=== PATIENT | female | born 1980 ===

== ENCOUNTER 2017-09-13 12:16 | Emergency (ER) | payer OTHER, SELFPAY ==
[2017-09-13 12:36] VITALS: BP 171/101; PULSE 93; RESP 20; TEMP 36.8; O2SAT 100
--- NOTE | 2017-09-13 12:45 | ED.CHESTPAIN ---
HPI - Chest Pain <JULISSA Jacobsen - Last Filed: 09/13/17 22:26> General Chief Complaint: Chest Pain Stated Complaint: chest pain,hard to catch breath Time Seen by Provider: 09/13/17 12:27 Source: patient Mode of arrival: ambulatory Limitations: no limitations History of Present Illness HPI narrative: Patient presents with chief complaint of epigastric and chest pain. States this started last night was 10/10. She took her ranitidine, and set up in a decreased enough for her to sleep. She woke up in pain at 3:00 a.m. she was able to sleep again after, and now states her pain comes and goes in waves. States her pain is mid epigastric and radiates to her back. States this started after eating cheeseburger and potato chips last night. She denies any dizziness, lightheadedness, nausea, vomiting, fever. She denies any palpitations swelling or constipation. She states her pain is 8/10 when it is at its worst. She states right now it is 0 to 1/10. She is not taking anything for the pain other than the ranitidine. She is concerned as she is worried about her heart and her family has a history of gallbladder problems. States slight dry cough. States hard to take a deep breath. Related Data Home Medications Medication Instructions Recorded Confirmed esomeprazole magnesium [Nexium #0 05/16/16 Packet] fexofenadine #0 05/16/16 Previous Rx's Medication Instructions Recorded albuterol sulfate [Ventolin HFA] 0 INH Q4H #8 gm 05/16/16 azithromycin [Zithromax] 0 PO QDAY #1 packet 05/16/16 prednisone 0 PO QDAY #7 tab 05/16/16 esomeprazole magnesium 20 mg PO DAILY #14 tab 09/13/17 Allergies Allergy/AdvReac Type Severity Reaction Status Date / Time aspirin [ASPIRIN] Allergy Unknown Unverified 07/22/17 12:41 ibuprofen [IBUPROFEN] Allergy Unknown Unverified 07/22/17 12:41 Review of Systems <JULISSA Jacobsen - Last Filed: 09/13/17 22:26> Review of Systems GENERAL: See HPI HEENT: Denies sinus pain, ear pain, sore throat, difficulty swallowing, dizziness. RESPIRATORY: Denies dyspnea, cough, wheezing, hemoptysis, sputum. CARDIOVASCULAR: See HPI GASTROINTESTINAL: See HPI : Denies dysuria, frequency, incontinence, hematuria, urinary retention. MUSCULOSKELETAL: denies weakness, joint pain, or bony pain SKIN: Denies rash, skin lesions, or other NEUROLOGIC: Denies weakness, headache, numbness, change in speech, confusion, seizures, incoordination. PSYCHIATRIC: No concerning psychosocial issues. 12 point review of systems is negative except for those stated above Exam <JULISSA Jacobsen - Last Filed: 09/13/17 22:26> Narrative Exam Narrative: GENERAL: This is a well-nourished, well-developed patient, in no acute distress. HEAD: Atraumatic. Normocephalic. No temporal or scalp tenderness. EYES: Pupils equal round and reactive. Extraocular motions intact. No scleral icterus. No injection or drainage. ENT: Nose without bleeding, purulent drainage or septal hematoma. Throat without erythema, tonsillar hypertrophy or exudate. Uvula midline. Airway patent. NECK: Trachea midline. No JVD or lymphadenopathy. Supple, nontender, no meningeal signs. CARDIOVASCULAR: Regular rate and rhythm without murmurs, gallops, or rubs. RESPIRATORY: Clear to auscultation. Breath sounds equal bilaterally. No wheezes, rales, or rhonchi. No cough in noted during exam. GASTROINTESTINAL: Abdomen soft, non-tender, nondistended. No hepato-splenomegaly, or palpable masses. No guarding. Positive [place] sign to palpation. No pain at McBurney's point. EXTREMITIES: No clubbing, cyanosis, or edema. No joint tenderness, effusion, or edema noted. BACK: Nontender without deformity or crepitance. No flank tenderness. NEURO: AOx3. SKIN: No rash or erythema. Initial Vital Signs Initial Vital Signs: Vital Signs Temperature 98.3 F 09/13/17 12:36 Pulse Rate 93 H 09/13/17 12:36 Respiratory Rate 20 09/13/17 12:36 Blood Pressure 171/101 H 09/13/17 12:36 Pulse Oximetry 100 09/13/17 12:36 <Gabino Garrison MD - Last Filed: 10/15/17 06:47> Initial Vital Signs Initial Vital Signs: Vital Signs Temperature 98.3 F 09/13/17 12:36 Pulse Rate 93 H 09/13/17 12:36 Respiratory Rate 20 09/13/17 12:36 Blood Pressure 171/101 H 09/13/17 12:36 Pulse Oximetry 100 09/13/17 12:36 Course <JULISSA Jacobsen - Last Filed: 09/13/17 22:26> Orders Ordered: Discontinued Medications Al Hydrox/Mg Hydrox/Simethicone 20 ml/ Lidocaine HCl 15 ml 0 ml PO NOW ONE Stop: 09/13/17 13:38 Last Admin: 09/13/17 13:45 Dose: 35 ml Reevaluation(s) Reevaluation #1: Discussed with patient resulting lab work. Still waiting on chest x-ray an official ultrasound read. However centrifugal chiller technician states no abnormal findings on ultrasound. Patient's pain is 0 to 1/10 at this point time. States comfort. Time: 13:25 Reevaluation #2: Discussed negative chest x-ray result. Discussed trial of GI cocktail for pain. Time: 13:38 Reevaluation #3: Patient states full relief with GI cocktail. Second set of cardiac enzymes drawn. Drawn 2 hr after 1st and several hours after onset of pain. Time: 14:30 Vital Signs - 8 hr 09/13/17 14:36 09/13/17 15:06 09/13/17 15:42 Pulse Rate 81 75 71 Respiratory Rate 18 12 16 Blood Pressure [Right Arm] 129/89 H 140/96 H 127/86 H Pulse Oximetry 100 100 100 <Gabino Garrison MD - Last Filed: 10/15/17 06:47> Orders Ordered: Discontinued Medications Al Hydrox/Mg Hydrox/Simethicone 20 ml/ Lidocaine HCl 15 ml 0 ml PO NOW ONE Stop: 09/13/17 13:38 Last Admin: 09/13/17 13:45 Dose: 35 ml Vital Signs - 8 hr 09/13/17 14:36 09/13/17 15:06 09/13/17 15:42 Pulse Rate 81 75 71 Respiratory Rate 18 12 16 Blood Pressure [Right Arm] 129/89 H 140/96 H 127/86 H Pulse Oximetry 100 100 100 MDM - Chest Pain <JULISSA Jacobsen - Last Filed: 09/13/17 22:26> Lab Data Attestation: I reviewed the patient's lab results. Result diagrams: 09/13/17 12:25 09/13/17 12:25 Lab Results 09/13/17 09/13/17 09/13/17 Range/Units 12:25 12:25 14:30 WBC 7.7 (4.5-11.0) X10^3/uL RBC 4.70 (4.0-5.2) X10^6/uL Hgb 13.9 (12.0-16.0) g/dL Hct 41.5 (36-46) % MCV 88.2 (80-100) fL MCH 29.7 (26-34) PG MCHC 33.6 (30-36) % RDW 12.7 (11.6-14.8) % Plt Count 298 (150-400) X10^3/uL Neut % (Auto) 58.8 (50-75) % Lymph % (Auto) 32.4 (25-40) % [place] % (Auto) 7.4 (3-14) % Eos % (Auto) 1.1 L (2-4) % Baso % (Auto) 0.3 (0-2) % Neut # (Auto) 4500 (0816-5872) /uL Sodium 142 (137-145) mmol/L Potassium 3.7 (3.4-5.1) mmol/L Chloride 104 (98-107) mmol/L Carbon Dioxide 26 (22-32) mmol/L BUN 13 (7-17) mg/dL Creatinine 0.70 (0.52-1.04) mg/dL Estimated GFR > 60.0 (>60) mL/min BUN/Creatinine Ratio 18.6 (6-22) Glucose 121 H (70-100) mg/dL Calcium 9.7 (8.4-10.2) mg/dL Total Bilirubin 1.0 (0.2-1.3) mg/dL AST 26 (14-36) IU/L ALT 35 (9-52) IU/L Alkaline Phosphatase 56 (38-126) U/L Total Creatine Kinase 54 (30-135) U/L Troponin I < 0.012 < 0.012 (0.01-0.034) ng/mL Total Protein 8.4 H (6.3-8.2) g/dL Albumin 4.8 (3.5-5.0) g/dL Globulin 3.6 (1.7-4.1) g/dL Albumin/Globulin Ratio 1.3 (1.0-2.8) Lipase 81 (23-300) U/L Imaging Data Chest x-ray: Radiologist's impression: [address] [address] XRay Report Signed Patient: Quinn Olson MR#: [id number] : 1980 Acct:[id number] Age/Sex: 36 / F Date of Service: 09/13/17 Loc: ED Accession Number: [id number] Procedure: XR chest 1V Ordering Provider: Khushboo Fry PROCEDURE: XR CHEST 1V INDICATIONS: chest pain TECHNIQUE: One view of the chest was acquired. COMPARISON: None. FINDINGS: Surgical changes and devices: None. Lungs and pleura: No pleural effusions or pneumothorax. Lungs are clear. Mediastinum: Mediastinal contours appear normal. Heart size is normal. Bones and chest wall: No suspicious bony lesions. Overlying soft tissues appear unremarkable. IMPRESSION: No acute cardiopulmonary findings. Dictated by: Tati Silva M.D. on 09/13/2017 at 13:29 Approved by: Tati Silva M.D. on 09/13/2017 at 13:30 US - abdomen: Radiologist's impression: [address] [address] Ultrasound Report Signed Patient: Quinn Olson MR#: [id number] : 1980 Acct:[id number] Age/Sex: 36 / F Date of Service: 09/13/17 Loc: ED Accession Number: [id number] Procedure: US abdomen complete Ordering Provider: Khushboo Fry PROCEDURE: US ABDOMEN COMPLETE INDICATIONS: RUQ, epigastric pain + murphys sign TECHNIQUE: Real-time scanning was performed of the abdominal and retroperitoneal organs, with image documentation. COMPARISON: None. FINDINGS: Liver: Liver is normal in size and homogeneous in echotexture. Gallbladder: The gallbladder wall measures 2 mm in diameter. No pericholecystic fluid, sludge, or stones. Biliary ducts: Intrahepatic bile ducts are non-dilated. Extrahepatic bile duct caliber measures 3 mm. Normal is 6-7 mm or less in diameter, or 10 mm or less post-cholecystectomy. Pancreas: Visualized portions of the pancreas are sonographically normal. Spleen: Spleen is normal in size and homogeneous in echotexture. Kidneys: Kidneys are normal in size and echotexture. Right kidney measures 10.6 cm long; left kidney measures 11.7 cm long. No hydronephrosis or nephrolithiasis. No solid masses. Aorta: Visualized aorta is normal in caliber at less than 3 cm. Iliacs: Proximal common iliac arteries are normal in caliber at less than 2.5 cm. IVC: Intrahepatic inferior vena cava is patent. Miscellaneous: No free abdominal fluid. IMPRESSION: No cholelithiasis or findings to suggest choledocholithiasis or acute cholecystitis. Dictated by: Tati Silva M.D. on 09/13/2017 at 13:36 Approved by: Tati Silva M.D. on 09/13/2017 at 13:37 ECG Data Attestation: I personally reviewed and interpreted this ECG as follows: Interpretation: Sinus rhythm. Heart rate 80.IA 171. No ST changes. MDM Narrative Medical decision making narrative: Patient presents with epigastric pain. She has a history of GERD. She had a EKG within normal limits, 2 sets of negative cardiac enzymes and normal lab work. Given her pain on palpation of right upper quadrant, we did an ultrasound which was negative for any acute gallbladder related etiology. Given her complete improvement of pain with menstruation of GI cocktail, I believe she is having a flare of her GERD. I discussed with her dietary changes including decreased acid, spice etc. I prescribed Prilosec for her that she requested a prescription. We discussed follow up with her primary care. We discussed come back to the emergency department for any acute concerns including chest pain or shortness of breath. Patient had no questions or concerns upon discharge. <Gabino Garrison MD - Last Filed: 10/15/17 06:47> Lab Data Lab Results 09/13/17 09/13/17 09/13/17 Range/Units 12:25 12:25 14:30 WBC 7.7 (4.5-11.0) X10^3/uL RBC 4.70 (4.0-5.2) X10^6/uL Hgb 13.9 (12.0-16.0) g/dL Hct 41.5 (36-46) % MCV 88.2 (80-100) fL MCH 29.7 (26-34) PG MCHC 33.6 (30-36) % RDW 12.7 (11.6-14.8) % Plt Count 298 (150-400) X10^3/uL Neut % (Auto) 58.8 (50-75) % Lymph % (Auto) 32.4 (25-40) % [place] % (Auto) 7.4 (3-14) % Eos % (Auto) 1.1 L (2-4) % Baso % (Auto) 0.3 (0-2) % Neut # (Auto) 4500 (5108-0454) /uL Sodium 142 (137-145) mmol/L Potassium 3.7 (3.4-5.1) mmol/L Chloride 104 (98-107) mmol/L Carbon Dioxide 26 (22-32) mmol/L BUN 13 (7-17) mg/dL Creatinine 0.70 (0.52-1.04) mg/dL Estimated GFR > 60.0 (>60) mL/min BUN/Creatinine Ratio 18.6 (6-22) Glucose 121 H (70-100) mg/dL Calcium 9.7 (8.4-10.2) mg/dL Total Bilirubin 1.0 (0.2-1.3) mg/dL AST 26 (14-36) IU/L ALT 35 (9-52) IU/L Alkaline Phosphatase 56 (38-126) U/L Total Creatine Kinase 54 (30-135) U/L Troponin I < 0.012 < 0.012 (0.01-0.034) ng/mL Total Protein 8.4 H (6.3-8.2) g/dL Albumin 4.8 (3.5-5.0) g/dL Globulin 3.6 (1.7-4.1) g/dL Albumin/Globulin Ratio 1.3 (1.0-2.8) Lipase 81 (23-300) U/L Discharge Plan Departure Patient Disposition: Home, Self-Care Clinical Impression: Chest pain due to GERD Discharge Date/Time: 09/13/17 15:49 Interventions: ED Discharge Assessment Last Done: 09/13/17 15:48 Instructions: DI for Gastroesophageal Reflux Disease (GERD), DI for Atypical Chest Pain Activity Restrictions/Additional Instructions: You came to the emergency department today for concerns of chest pain. You had a normal EKG, normal chest x-ray and normal blood work. However you did respond well to the GI cocktail that we gave you for concern about acid reflux. I am giving you a prescription for esomeprazole, which have taken before. Please monitor your diet for triggers. Feel free to take as needed heartburn medication if you need to. Feel free to come back to the emergency department if you have any concerns about her heart or acute changes. Prescriptions: New esomeprazole magnesium 20 mg tablet,delayed release (DR/EC) 20 mg PO DAILY Qty: 14 RF: 0 No Action fexofenadine 60 mg Tablet Qty: 0 RF: 0 esomeprazole magnesium [Nexium Packet] 2.[address] For Susp In Packet Qty: 0 RF: 0 azithromycin [Zithromax] 250 MG tablet PO QDAY Qty: 1 RF: 0 prednisone 20 MG tablet PO QDAY Qty: 7 RF: 0 albuterol sulfate [Ventolin HFA] 90 MCG/PUFF HFA aerosol inhaler INH Q4H Qty: 8 RF: 0 Referrals: Ken Mcleod, [facility] [Primary Care Provider] - <Gabino Garrison MD - Last Filed: 10/15/17 06:47> Cosign ED Attending Cosignature Attestation: The PA/TRANSITIONAL CARE NURSE functioned independently for the care of this pt, I was available, but not asked to participate in care. I am unable to determine appropriateness of management without personally examining the pt.
[2017-09-13 12:52] LABS: Add Manual Diff / Slide Review NO; Basophils Percent Auto 0.3 % (0-2); Eosinophils Percent Auto 1.1 % (2-4); Hematocrit 41.5 % (36-46); Hemoglobin 13.9 g/dL (12.0-16.0); Lymphocytes Percent Auto 32.4 % (25-40); Mean Corpuscular HGB Conc 33.6 % (30-36); Mean Corpuscular Hemoglobin 29.7 PG (26-34); Mean Corpuscular Volume 88.2 fL (80-100); Monocytes Percent Auto 7.4 % (3-14); Neutrophils Absolute Auto 4500 /uL (3000-5900); Neutrophils Percent Auto 58.8 % (50-75); Platelet Count 298 X10^3/uL (150-400); Red Cell Distribution Width 12.7 % (11.6-14.8); White Blood Cell Count 7.7 X10^3/uL (4.5-11.0)
[2017-09-13 12:59] LABS: Alanine Aminotransferase 35 IU/L (9-52); Albumin 4.8 g/dL (3.5-5.0); Albumin Globulin Ratio 1.3 (1.0-2.8); Alkaline Phosphatase 56 U/L (38-126); Aspartate Aminotransferase 26 IU/L (14-36); BUN Creatinine Ratio 18.6 (6-22); Blood Urea Nitrogen 13 mg/dL (7-17); Calcium 9.7 mg/dL (8.4-10.2); Carbon Dioxide 26 mmol/L (22-32); Chloride 104 mmol/L (98-107); Creatine Kinase 54 U/L (30-135); Estimated Glomerular Filt Rate > 60.0 mL/min (>60); Globulin 3.6 g/dL (1.7-4.1); Glucose 121 mg/dL (70-100); HEMOLYSIS 17 (0-50); Lipase 81 U/L (23-300); Potassium 3.7 mmol/L (3.4-5.1); Sodium 142 mmol/L (137-145); Total Protein 8.4 g/dL (6.3-8.2)
[2017-09-13 13:07] VITALS: BP 143/93; PULSE 84; RESP 15; O2SAT 100
[2017-09-13 13:11] LABS: Troponin I < 0.012 ng/mL (0.01-0.034)
--- NOTE | 2017-09-13 13:21 | ED_ITS ---
HPI - Chest Pain <JULISSA Jacobsen - Last Filed: 09/13/17 22:26> General Chief Complaint: Chest Pain Stated Complaint: chest pain,hard to catch breath Time Seen by Provider: 09/13/17 12:27 Source: patient Mode of arrival: ambulatory Limitations: no limitations History of Present Illness HPI narrative: Patient presents with chief complaint of epigastric and chest pain. States this started last night was 10/10. She took her ranitidine, and set up in a decreased enough for her to sleep. She woke up in pain at 3:00 a.m. she was able to sleep again after, and now states her pain comes and goes in waves. States her pain is mid epigastric and radiates to her back. States this started after eating cheeseburger and potato chips last night. She denies any dizziness, lightheadedness, nausea, vomiting, fever. She denies any palpitations swelling or constipation. She states her pain is 8/10 when it is at its worst. She states right now it is 0 to 1/10. She is not taking anything for the pain other than the ranitidine. She is concerned as she is worried about her heart and her family has a history of gallbladder problems. States slight dry cough. States hard to take a deep breath. Related Data Home Medications Medication Instructions Recorded Confirmed esomeprazole magnesium [Nexium #0 05/16/16 Packet] fexofenadine #0 05/16/16 Previous Rx's Medication Instructions Recorded albuterol sulfate [Ventolin HFA] 0 INH Q4H #8 gm 05/16/16 azithromycin [Zithromax] 0 PO QDAY #1 packet 05/16/16 prednisone 0 PO QDAY #7 tab 05/16/16 esomeprazole magnesium 20 mg PO DAILY #14 tab 09/13/17 Allergies Allergy/AdvReac Type Severity Reaction Status Date / Time aspirin [ASPIRIN] Allergy Unknown Unverified 07/22/17 12:41 ibuprofen [IBUPROFEN] Allergy Unknown Unverified 07/22/17 12:41 Review of Systems <JULISSA Jacobsen - Last Filed: 09/13/17 22:26> Review of Systems GENERAL: See HPI HEENT: Denies sinus pain, ear pain, sore throat, difficulty swallowing, dizziness. RESPIRATORY: Denies dyspnea, cough, wheezing, hemoptysis, sputum. CARDIOVASCULAR: See HPI GASTROINTESTINAL: See HPI : Denies dysuria, frequency, incontinence, hematuria, urinary retention. MUSCULOSKELETAL: denies weakness, joint pain, or bony pain SKIN: Denies rash, skin lesions, or other NEUROLOGIC: Denies weakness, headache, numbness, change in speech, confusion, seizures, incoordination. PSYCHIATRIC: No concerning psychosocial issues. 12 point review of systems is negative except for those stated above Exam <JULISSA Jacobsen - Last Filed: 09/13/17 22:26> Narrative Exam Narrative: GENERAL: This is a well-nourished, well-developed patient, in no acute distress. HEAD: Atraumatic. Normocephalic. No temporal or scalp tenderness. EYES: Pupils equal round and reactive. Extraocular motions intact. No scleral icterus. No injection or drainage. ENT: Nose without bleeding, purulent drainage or septal hematoma. Throat without erythema, tonsillar hypertrophy or exudate. Uvula midline. Airway patent. NECK: Trachea midline. No JVD or lymphadenopathy. Supple, nontender, no meningeal signs. CARDIOVASCULAR: Regular rate and rhythm without murmurs, gallops, or rubs. RESPIRATORY: Clear to auscultation. Breath sounds equal bilaterally. No wheezes , rales, or rhonchi. No cough in noted during exam. GASTROINTESTINAL: Abdomen soft, non-tender, nondistended. No hepato-splenomegaly , or palpable masses. No guarding. Positive Machuca sign to palpation. No pain at McBurney's point. EXTREMITIES: No clubbing, cyanosis, or edema. No joint tenderness, effusion, or edema noted. BACK: Nontender without deformity or crepitance. No flank tenderness. NEURO: AOx3. SKIN: No rash or erythema. Initial Vital Signs Initial Vital Signs: Vital Signs Temperature 98.3 F 09/13/17 12:36 Pulse Rate 93 H 09/13/17 12:36 Respiratory Rate 20 09/13/17 12:36 Blood Pressure 171/101 H 09/13/17 12:36 Pulse Oximetry 100 09/13/17 12:36 <Gabino Garrison MD - Last Filed: 10/15/17 06:47> Initial Vital Signs Initial Vital Signs: Vital Signs Temperature 98.3 F 09/13/17 12:36 Pulse Rate 93 H 09/13/17 12:36 Respiratory Rate 20 09/13/17 12:36 Blood Pressure 171/101 H 09/13/17 12:36 Pulse Oximetry 100 09/13/17 12:36 Course <JULISSA Jacobsen - Last Filed: 09/13/17 22:26> Orders Ordered: Discontinued Medications Al Hydrox/Mg Hydrox/Simethicone 20 ml/ Lidocaine HCl 15 ml 0 ml PO NOW ONE Stop: 09/13/17 13:38 Last Admin: 09/13/17 13:45 Dose: 35 ml Reevaluation(s) Reevaluation #1: Discussed with patient resulting lab work. Still waiting on chest x-ray an official ultrasound read. However ceramics technician states no abnormal findings on ultrasound. Patient's pain is 0 to 1/10 at this point time. States comfort. Time: 13:25 Reevaluation #2: Discussed negative chest x-ray result. Discussed trial of GI cocktail for pain. Time: 13:38 Reevaluation #3: Patient states full relief with GI cocktail. Second set of cardiac enzymes drawn. Drawn 2 hr after 1st and several hours after onset of pain. Time: 14:30 Vital Signs - 8 hr 09/13/17 14:36 09/13/17 15:06 09/13/17 15:42 Pulse Rate 81 75 71 Respiratory Rate 18 12 16 Blood Pressure [Right Arm] 129/89 H 140/96 H 127/86 H Pulse Oximetry 100 100 100 <Gabino Garrison MD - Last Filed: 10/15/17 06:47> Orders Ordered: Discontinued Medications Al Hydrox/Mg Hydrox/Simethicone 20 ml/ Lidocaine HCl 15 ml 0 ml PO NOW ONE Stop: 09/13/17 13:38 Last Admin: 09/13/17 13:45 Dose: 35 ml Vital Signs - 8 hr 09/13/17 14:36 09/13/17 15:06 09/13/17 15:42 Pulse Rate 81 75 71 Respiratory Rate 18 12 16 Blood Pressure [Right Arm] 129/89 H 140/96 H 127/86 H Pulse Oximetry 100 100 100 MDM - Chest Pain <JULISSA Jacobsen - Last Filed: 09/13/17 22:26> Lab Data Attestation: I reviewed the patient's lab results. Result diagrams: 09/13/17 12:25 09/13/17 12:25 Lab Results 09/13/17 09/13/17 09/13/17 Range/Units 12:25 12:25 14:30 WBC 7.7 (4.5-11.0) X10^3/uL RBC 4.70 (4.0-5.2) X10^6/uL Hgb 13.9 (12.0-16.0) g/dL Hct 41.5 (36-46) % MCV 88.2 (80-100) fL MCH 29.7 (26-34) PG MCHC 33.6 (30-36) % RDW 12.7 (11.6-14.8) % Plt Count 298 (150-400) X10^3/uL Neut % (Auto) 58.8 (50-75) % Lymph % (Auto) 32.4 (25-40) % [place]own[place] % (Auto) 7.4 (3-14) % Eos % (Auto) 1.1 L (2-4) % Baso % (Auto) 0.3 (0-2) % Neut # (Auto) 4500 (7795-4705) /uL Sodium 142 (137-145) mmol/L Potassium 3.7 (3.4-5.1) mmol/L Chloride 104 (98-107) mmol/L Carbon Dioxide 26 (22-32) mmol/L BUN 13 (7-17) mg/dL Creatinine 0.70 (0.52-1.04) mg/dL Estimated GFR > 60.0 (>60) mL/min BUN/Creatinine Ratio 18.6 (6-22) Glucose 121 H (70-100) mg/dL Calcium 9.7 (8.4-10.2) mg/dL Total Bilirubin 1.0 (0.2-1.3) mg/dL AST 26 (14-36) IU/L ALT 35 (9-52) IU/L Alkaline Phosphatase 56 (38-126) U/L Total Creatine Kinase 54 (30-135) U/L Troponin I < 0.012 < 0.012 (0.01-0.034) ng/mL Total Protein 8.4 H (6.3-8.2) g/dL Albumin 4.8 (3.5-5.0) g/dL Globulin 3.6 (1.7-4.1) g/dL Albumin/Globulin Ratio 1.3 (1.0-2.8) Lipase 81 (23-300) U/L Imaging Data Chest x-ray: Radiologist's impression: [address] [address] XRay Report Signed Patient: Quinn Olson MR#: [id number] : 1980 Acct:[id number] Age/Sex: 36 / F Date of Service: 09/13/17 Loc: ED Accession Number: [id number] Procedure: XR chest 1V Ordering Provider: Khushboo Fry PROCEDURE: XR CHEST 1V INDICATIONS: chest pain TECHNIQUE: One view of the chest was acquired. COMPARISON: None. FINDINGS: Surgical changes and devices: None. Lungs and pleura: No pleural effusions or pneumothorax. Lungs are clear. Mediastinum: Mediastinal contours appear normal. Heart size is normal. Bones and chest wall: No suspicious bony lesions. Overlying soft tissues appear unremarkable. IMPRESSION: No acute cardiopulmonary findings. Dictated by: Tati Silva M.D. on 09/13/2017 at 13:29 Approved by: Tati Silva M.D. on 09/13/2017 at 13:30 US - abdomen: Radiologist's impression: [address] [address] Ultrasound Report Signed Patient: Quinn Olson MR#: [id number] : 1980 Acct:[id number] Age/Sex: 36 / F Date of Service: 09/13/17 Loc: ED Accession Number: [id number] Procedure: US abdomen complete Ordering Provider: Khushboo Fry PROCEDURE: US ABDOMEN COMPLETE INDICATIONS: RUQ, epigastric pain + murphys sign TECHNIQUE: Real-time scanning was performed of the abdominal and retroperitoneal organs, with image documentation. COMPARISON: None. FINDINGS: Liver: Liver is normal in size and homogeneous in echotexture. Gallbladder: The gallbladder wall measures 2 mm in diameter. No pericholecystic fluid, sludge, or stones. Biliary ducts: Intrahepatic bile ducts are non-dilated. Extrahepatic bile duct caliber measures 3 mm. Normal is 6-7 mm or less in diameter, or 10 mm or less post-cholecystectomy. Pancreas: Visualized portions of the pancreas are sonographically normal. Spleen: Spleen is normal in size and homogeneous in echotexture. Kidneys: Kidneys are normal in size and echotexture. Right kidney measures 10.6 cm long; left kidney measures 11.7 cm long. No hydronephrosis or nephrolithiasis. No solid masses. Aorta: Visualized aorta is normal in caliber at less than 3 cm. Iliacs: Proximal common iliac arteries are normal in caliber at less than 2.5 cm. IVC: Intrahepatic inferior vena cava is patent. Miscellaneous: No free abdominal fluid. IMPRESSION: No cholelithiasis or findings to suggest choledocholithiasis or acute cholecystitis. Dictated by: Tati Silva M.D. on 09/13/2017 at 13:36 Approved by: Tati Silva M.D. on 09/13/2017 at 13:37 ECG Data Attestation: I personally reviewed and interpreted this ECG as follows: Interpretation: Sinus rhythm. Heart rate 80.LA 171. No ST changes. MDM Narrative Medical decision making narrative: Patient presents with epigastric pain. She has a history of GERD. She had a EKG within normal limits, 2 sets of negative cardiac enzymes and normal lab work. Given her pain on palpation of right upper quadrant, we did an ultrasound which was negative for any acute gallbladder related etiology. Given her complete improvement of pain with menstruation of GI cocktail, I believe she is having a flare of her GERD. I discussed with her dietary changes including decreased acid, spice etc. I prescribed Prilosec for her that she requested a prescription. We discussed follow up with her primary care. We discussed come back to the emergency department for any acute concerns including chest pain or shortness of breath. Patient had no questions or concerns upon discharge. <Gabino Garrison MD - Last Filed: 10/15/17 06:47> Lab Data Lab Results 09/13/17 09/13/17 09/13/17 Range/Units 12:25 12:25 14:30 WBC 7.7 (4.5-11.0) X10^3/uL RBC 4.70 (4.0-5.2) X10^6/uL Hgb 13.9 (12.0-16.0) g/dL Hct 41.5 (36-46) % MCV 88.2 (80-100) fL MCH 29.7 (26-34) PG MCHC 33.6 (30-36) % RDW 12.7 (11.6-14.8) % Plt Count 298 (150-400) X10^3/uL Neut % (Auto) 58.8 (50-75) % Lymph % (Auto) 32.4 (25-40) % [place] % (Auto) 7.4 (3-14) % Eos % (Auto) 1.1 L (2-4) % Baso % (Auto) 0.3 (0-2) % Neut # (Auto) 4500 (8173-5331) /uL Sodium 142 (137-145) mmol/L Potassium 3.7 (3.4-5.1) mmol/L Chloride 104 (98-107) mmol/L Carbon Dioxide 26 (22-32) mmol/L BUN 13 (7-17) mg/dL Creatinine 0.70 (0.52-1.04) mg/dL Estimated GFR > 60.0 (>60) mL/min BUN/Creatinine Ratio 18.6 (6-22) Glucose 121 H (70-100) mg/dL Calcium 9.7 (8.4-10.2) mg/dL Total Bilirubin 1.0 (0.2-1.3) mg/dL AST 26 (14-36) IU/L ALT 35 (9-52) IU/L Alkaline Phosphatase 56 (38-126) U/L Total Creatine Kinase 54 (30-135) U/L Troponin I < 0.012 < 0.012 (0.01-0.034) ng/mL Total Protein 8.4 H (6.3-8.2) g/dL Albumin 4.8 (3.5-5.0) g/dL Globulin 3.6 (1.7-4.1) g/dL Albumin/Globulin Ratio 1.3 (1.0-2.8) Lipase 81 (23-300) U/L Discharge Plan Departure Patient Disposition: Home, Self-Care Clinical Impression: Chest pain due to GERD Discharge Date/Time: 09/13/17 15:49 Interventions: ED Discharge Assessment Last Done: 09/13/17 15:48 Instructions: DI for Gastroesophageal Reflux Disease (GERD), DI for Atypical Chest Pain Activity Restrictions/Additional Instructions: You came to the emergency department today for concerns of chest pain. You had a normal EKG, normal chest x-ray and normal blood work. However you did respond well to the GI cocktail that we gave you for concern about acid reflux. I am giving you a prescription for esomeprazole, which have taken before. Please monitor your diet for triggers. Feel free to take as needed heartburn medication if you need to. Feel free to come back to the emergency department if you have any concerns about her heart or acute changes. Prescriptions: New esomeprazole magnesium 20 mg tablet,delayed release (DR/EC) 20 mg PO DAILY Qty: 14 RF: 0 No Action fexofenadine 60 mg Tablet Qty: 0 RF: 0 esomeprazole magnesium [Nexium Packet] 2.[address] For Susp In Packet Qty: 0 RF: 0 azithromycin [Zithromax] 250 MG tablet PO QDAY Qty: 1 RF: 0 prednisone 20 MG tablet PO QDAY Qty: 7 RF: 0 albuterol sulfate [Ventolin HFA] 90 MCG/PUFF HFA aerosol inhaler INH Q4H Qty: 8 RF: 0 Referrals: Ken Mcleod, CECI [Primary Care Provider] - <Gabino Garrison MD - Last Filed: 10/15/17 06:47> Cosign ED Attending Cosignature Attestation: The PA/AUTOMOTIVE SALES MANAGER functioned independently for the care of this pt, I was available, but not asked to participate in care. I am unable to determine appropriateness of management without personally examining the pt.
[2017-09-13] MEDS: MAG HYDROX/ALUMINUM/SIMETH SUS 20 ML, LIDOCAINE VISCOUS 2% 15 ML PO (13:45)
[2017-09-13 14:00] VITALS: BP 129/89; PULSE 82; RESP 16; O2SAT 99
[2017-09-13 14:36] VITALS: BP 129/89; PULSE 81; RESP 18; O2SAT 100
[2017-09-13 15:03] LABS: Troponin I < 0.012 ng/mL (0.01-0.034)
[2017-09-13 15:06] VITALS: BP 140/96; PULSE 75; RESP 12; O2SAT 100
[2017-09-13 15:42] VITALS: BP 127/86; PULSE 71; RESP 16; O2SAT 100
== END 2017-09-13 15:49 | disposition home or self-care (01) ==
PROVIDERS: Emergency Provider Nurse Practitioner Family; PCP Registered Nurse Diabetes Educator
DX: K21.9 Gastro-esophageal reflux disease without esophagitis (principal); R07.9 Chest pain, unspecified
CPT/HCPCS: 36415; 36591; 71045; 76700; 80053; 82550; 82553; 83690; 84484; 85025; 93005; 93041; 99283; 99285

== ENCOUNTER 2018-02-03 11:38 | Day surgery (SDC) | payer OTHER, SELFPAY ==
--- NOTE | 2018-02-03 | PATH_ITS ---
[facility] Accession Number: [id number] . 01 Material submitted: . PART A: GASTRIC BIOPSIES PART B: ESOPHAGEAL BIOPSIES . 01 Clinical history: . A: GASTRIC BIOPSIES FOR H.PYLORI . 02 Diagnosis: A. Stomach, Biopsies: Gastric body mucosa with no diagnostic abnormality. No evidence of Helicobacter organisms on H/E stain. Negative for intestinal metaplasia, dysplasia or malignancy. . B. Esophagus, Biopsies: Squamous and columnar mucosa with mild reactive features of reflux esophagitis. 0-1 eosinophils per 40X high-power field. Negative for specialized intestinal metaplasia, dysplasia or malignancy. [facility]/02/04/2018 . 02 Electronically signed: . Dwight Irvin MD, PhD, Pathologist NPI- [id number] . 01 Gross description: . Received two formalin-filled containers, both labeled with the patient's name: . A. In a container labeled gastric, the specimen consists of a 0.2 cm portion of tissue, entirely submitted in cassette A. B. In a container labeled esophageal, the specimen consists of four less than 0.1 cm to 0.3 cm portions of tissue, entirely submitted in cassette B. ([id number]) /FRR . 02 Pathologist provided ICD-10: R10.13, K21.0 . 02 CPT . 462904, 729782 Performed at: 01 [facility] [address] [id number] MD Bruno Oliva MD Phone: [phone] Performed at: 02 [facility] [address] [place], [place] [id number] MD Atif Del Angel MD Phone: [phone]
[2018-02-03 11:52] VITALS: BP 144/92; PULSE 82; RESP 16; TEMP 37.3; O2SAT 100; BMI 25.7
[2018-02-03] MEDS: SODIUM CHLORIDE 0.9% 1,000 ML 42 ML IV (12:07)
--- NOTE | 2018-02-03 13:47 | PM.HP.1 ---
History of Present Illness Date Patient Seen: 02/03/18 Time Patient Seen: 13:47 Chief complaint: [id number] EGD W/POSS BX Narrative: Epigastric pain and GE reflux rule out peptic disease plus or minus Helicobacter Patient History Surgical History History of tonsillectomy (Acute) Family & Social History Social History: household members spouse Tobacco & Substance use: Smoking Status Never smoker alcohol intake frequency 0-2 drinks per day Substance Use Type does not use Meds Home Medications Medication Instructions Recorded Confirmed Type albuterol sulfate [Ventolin HFA] 0 INH Q4H #8 gm 05/16/16 Rx azithromycin [Zithromax] 0 PO QDAY #1 packet 05/16/16 Rx esomeprazole magnesium [Nexium #0 05/16/16 History Packet] fexofenadine #0 05/16/16 History prednisone 0 PO QDAY #7 tab 05/16/16 Rx esomeprazole magnesium 20 mg PO DAILY #14 tab 09/13/17 Rx Allergies Allergy/AdvReac Type Severity Reaction Status Date / Time aspirin [ASPIRIN] Allergy Unknown Verified 02/03/18 12:13 ibuprofen [IBUPROFEN] Allergy Unknown Verified 02/03/18 12:13 Exam Vital Signs (past 8 hours): - 02/03/18 11:52 Temperature 99.1 F Pulse Rate 82 Respiratory Rate 16 Blood Pressure 144/92 H Pulse Oximetry 100 Oxygen Delivery Method Room Air Narrative Exam Narrative: Oropharynx free of lesions Chest clear to auscultation percussion Cardiac exam reveals no S3 or murmur Assessment & Plan Plan: Assessment/Plan Narrative: Assessment: Epigastric pain unresponsive to Prilosec rule out peptic disease rule out underlying esophagitis Plan: EGD
--- NOTE | 2018-02-03 14:02 | PM.OP.ENDO ---
Operative Date/Time/Diagnoses Date of procedure: 02/03/18 Time of procedure: 14:02 Pre-op diagnosis: See indication and findings Post-op diagnosis: same Procedure & Clinicians Study performed: EGD Same procedure as scheduled: Yes Indications: Persistent epigastric pain and GE reflux despite single dose omeprazole Surgeon: Whit Chang Procedure Notes Procedure in detail: Sedation: Fentanyl 100 mcg Versed 8 mg IV titration Total sedation time 19 min After informed consent was obtained the patient was placed in left lateral decubitus position. The video upper scope was placed into the oropharynx with the patient's altered the esophagus. The esophagus stomach and duodenum were carefully examined. On withdrawal, retroflexed view the GE junction was performed. The scope was removed. The patient tolerated procedure well. Blood loss none Complications none Findings 1. Mildly ringed esophagus in the middle to distal esophagus biopsies taken to rule out eosinophilic esophagitis 2. Somewhat gaping lower esophageal sphincter 3. Absolutely no evidence of esophagitis. 4. Normal stomach except trivial erythema in the pre-pyloric region biopsies taken to rule out Helicobacter 5. Normal duodenal bulb and sweep Will wait for pathology come back but she might consider it even doubling up on her Prilosec or Nexium right now.
[2018-02-03] MEDS: fentaNYL 250 MCG/5 ML INJ IV (14:03)
[2018-02-03] MEDS: MIDAZOLAM 5 MG/5 ML VIAL IV (14:05)
[2018-02-03 14:08] VITALS: BP 143/96; PULSE 87; RESP 18; TEMP 37; O2SAT 98
[2018-02-03 14:13] VITALS: BP 133/93; PULSE 87; RESP 18; O2SAT 96
[2018-02-03 14:18] VITALS: BP 143/99; PULSE 84; RESP 13; TEMP 36.4; O2SAT 96
[2018-02-03 14:25] VITALS: BP 141/99; PULSE 79; RESP 16; TEMP 36.9; O2SAT 100
[2018-02-03 14:50] VITALS: BP 145/98; PULSE 77; RESP 16; TEMP 37.3; O2SAT 100
== END 2018-02-03 14:55 ==
LOC: ENDO 11:40
PROVIDERS: PCP Registered Nurse Diabetes Educator; Visit Provider Internal Medicine Gastroenterology
PROC: 0DJ08ZZ Inspection of Upper Intestinal Tract, Via Natural or Artificial Opening Endoscopic (ICD-10-PCS; CPT 43235; principal; 2018-02-03 13:00)
DX: R10.13 Epigastric pain (principal); K21.9 Gastro-esophageal reflux disease without esophagitis
CPT/HCPCS: 43235; 88305; J2250; J3010

== ENCOUNTER 2023-07-15 09:49 | Day surgery (SDC) | payer OTHER, SELFPAY ==
--- NOTE | 2023-07-15 | PATH_ITS ---
[facility] Accession Number: [id number] No. of containers..02 Tissue . 01 Material submitted: . PART A: small bowel - SMALL BOWEL CELIAC BX PART B: gastrointestinal site - GASTRIC POLYP . 01 Diagnosis: A. SMALL BOWEL, BIOPSY: Duodenal mucosa with no diagnostic abnormality. Negative for active inflammation, features of sprue, dysplasia, or malignancy. . B. STOMACH, POLYP: Fundic gland polyp. No evidence of Helicobacter organisms on H/E stain. Negative for intestinal metaplasia. Negative for dysplasia and malignancy. [facility] 07/20/2023 1224 Local . 01 Electronically signed: . Criss Wilcox MD, Pathologist NPI- [id number] . 01 Gross description: . Part A: SMALL BOWEL CELIAC BX: Received in formalin are 2 fragment(s) of matthews, soft tissue measuring 0.1 x 0.1 x 0.1 cm to 0.3 x 0.3 x 0.2 cm submitted entirely in 1 cassette(s) Part B: GASTRIC POLYP: Received in formalin is 1 fragment(s) of matthews, soft tissue measuring 0.3 x 0.2 x 0.2 cm submitted entirely in 1 cassette(s) /STEWART 07/16/2023 1837 Local . 01 Pathologist provided ICD-10: K31.7 . 01 CPT . 475625, [id number] Specimen Comment: A courtesy copy of this report has been sent to [phone] Performed at: 01 [facility] [address] [place] [id number] MD Bruno Oliva MD Phone: [phone]
[2023-07-15 10:33] VITALS: BP 136/94; PULSE 81; RESP 16; TEMP 36.6; O2SAT 100
[2023-07-15] MEDS: LACTATED RINGERS 1,000 ML 42 ML IV (10:46)
--- NOTE | 2023-07-15 10:51 | P.HP_ITS ---
History of Present Illness History of Present Illness Date Patient Seen: 07/15/23 Chief complaint: EGD & Colonoscopy Narrative: Iron deficiency anemia [facility] Surgical History (Updated 02/03/18 @ 13:48 by Whit Chang MD) History of tonsillectomy Social History household members: spouse Smoking Status: Never smoker Meds Home Medications and Allergies Home Medications Medication Instructions Recorded Confirmed Type fexofenadine 60 mg tablet ##0 05/16/16 History ergocalciferol (vitamin D2) 1,250 1,250 mcg PO 07/15/23 History mcg (50,000 unit) capsule (Vitamin D2) ferrous sulfate 324 mg (65 mg 324 mg PO DAILY 07/15/23 07/15/23 History iron) tablet,delayed release lisinopril 10 mg tablet 10 mg PO DAILY 07/15/23 07/15/23 History tretinoin 0.1 % topical cream 1 applic topical ONCE PM 07/15/23 07/15/23 History (Retin-A) Allergies Allergy/AdvReac Type Severity Reaction Status Date / Time aspirin [ASPIRIN] Allergy Unknown Verified 02/03/18 12:13 ibuprofen [IBUPROFEN] Allergy Unknown Verified 02/03/18 12:13 Exam Vital Signs (past 8 hours): - 07/15/23 10:33 Temperature 97.8 F Pulse Rate 81 Respiratory Rate 16 Blood Pressure 136/94 H Pulse Oximetry 100 Oxygen Delivery Method Room Air Oxygen Delivery Method Room Air Narrative Exam Narrative: Oropharynx free lesions Chest clear to auscultation percussion Cardiac exam reveals no S3 or murmur Assessment & Plan Assessment & Plan narrative: Iron deficiency anemia. Rule out GI source. Risks, benefits, alternatives have been explained.
--- NOTE | 2023-07-15 10:52 | P.OP.EGD&C_ITS ---
Operative Date/Time/Diagnoses Date of procedure: 07/15/23 Pre-op diagnosis: See indication and findings Procedure & Clinicians Study performed: EGD and colonoscopy Indications: Iron deficiency anemia, personal history of colon polyps Surgeon: Whit Chang Procedure Notes Procedure in detail: After informed consent was obtained the patient was placed in left lateral decubitus position. The video upper scope was placed in the oropharynx and with the patient's help swallowed into the esophagus. The esophagus stomach and duodenum were carefully examined. On withdrawal retroflexed view the GE junction was performed. The scope was removed. The patient tolerated procedure well. Patient was then turned the colonoscope substituted. The scope was easily passed the cecum. Preparation was good. On slow withdrawal mucosa was carefully examined. The scope was removed. The patient tolerated procedure wel l. Blood loss none Complications none Sedation mac Findings EGD 1. Normal esophagus 2. Normal stomach other than to fundic gland appearing polyps I in the body largest biopsied x2 3. Normal duodenal bulb and sweep biopsies taken to rule out celiac Colonoscopy 1. Normal colonoscopy to cecum I would suggest staying iron supplements and rechecking blood counts in 2-3 months. If at that point CBC has normalized I would go off the iron supplements and follow-up blood counts. If she has recurrent iron deficiency we should consider pill camera.
[2023-07-15 11:56] VITALS: BP 111/66; PULSE 88; RESP 24; TEMP 36.4; O2SAT 97
[2023-07-15 12:01] VITALS: BP 115/75; PULSE 86; RESP 21; O2SAT 99
[2023-07-15 12:06] VITALS: BP 128/83; PULSE 81; RESP 16; TEMP 36.7; O2SAT 99
[2023-07-15 12:14] VITALS: BP 137/92; PULSE 81; RESP 15; TEMP 36.7; O2SAT 100
[2023-07-15 12:16] VITALS: BP 129/96; PULSE 87; RESP 21; TEMP 36.7; O2SAT 100
== END 2023-07-15 12:27 | disposition home or self-care (01) ==
PROVIDERS: PCP Registered Nurse Diabetes Educator; Referring Provider Internal Medicine Gastroenterology; Visit Provider Internal Medicine Gastroenterology
PROC: 0DJ08ZZ Inspection of Upper Intestinal Tract, Via Natural or Artificial Opening Endoscopic (ICD-10-PCS; CPT 43235; principal; 2023-07-15 11:00)
PROC: 0DJD8ZZ Inspection of Lower Intestinal Tract, Via Natural or Artificial Opening Endoscopic (ICD-10-PCS; CPT 45378; 2023-07-15 11:00)
DX: D50.9 Iron deficiency anemia, unspecified (principal); R19.5 Other fecal abnormalities; Z86.010 Personal history of colon polyps; R10.11 Right upper quadrant pain; K31.7 Polyp of stomach and duodenum
CPT/HCPCS: 45378; 43239; 81025; J2704